=== PATIENT | male | born 1970 | race Caucasian/White ===

== ENCOUNTER 2020-11-03 08:24 | Emergency (ER) | payer MEDICARE, OTHER ==
[2020-11-03 08:30] VITALS: RESP 18; TEMP 98.1
--- NOTE | 2020-11-03 09:02 | ED ---
General Adult HPI - General Chief complaint: Extremity Injury, Lower Stated complaint: bilat knee pain Time Seen by Provider: 11/03/20 08:40 Source: patient, RN notes reviewed, old records reviewed Mode of arrival: ambulatory Limitations: no limitations - History of Present Illness Initial comments: 50-year-old male who presented with bilateral knee pain on the medial aspect of his knees. He has had the pain for several weeks. He denies a specific injury but states he had been doing some weed whacking and the pain did seem to begin after this. He went to an outside hospital and apparently had received both x- rays and ultrasounds of both legs which were negative for any acute abnormality and did indicate that the patient had some arthritis. He saw his primary care physician who recommended he use an arthritis cream but this has not been working. Additionally he takes prescription strength Motrin and Woodside for chronic back pain. These have not been helping much either. No fever. No trauma. No other complaints. - Related Data Home Medications Medication Instructions Recorded Confirmed HYDROcodone/APAP 10-325MG [Woodside 1 tab PO TID PRN 09/22/15 11/03/20 10-325] Allergies Allergy/AdvReac Type Severity Reaction Status Date / Time No Known Allergies Allergy Verified 11/03/20 09:31 Review of Systems ROS Statement: Those systems with pertinent positive or pertinent negative responses have been documented in the HPI. ROS Other: All systems not noted in ROS Statement are negative. Past Medical History Additional Past Medical History / Comment(s): back pain History of Any Multi-Drug Resistant Organisms: None Reported Additional Past Surgical History / Comment(s): right arm amputation, B knee Past Psychological History: No Psychological Hx Reported Smoking Status: Former smoker Past Alcohol Use History: None Reported Past Drug Use History: Marijuana General Exam Limitations: no limitations General appearance: alert, in no apparent distress Head exam: Present: atraumatic, normocephalic Eye exam: Present: normal appearance, PERRL ENT exam: Present: normal exam Neck exam: Present: normal inspection. Absent: tenderness Respiratory exam: Present: normal lung sounds bilaterally. Absent: respiratory distress Cardiovascular Exam: Present: regular rate, normal rhythm GI/Abdominal exam: Present: soft. Absent: distended, tenderness Extremities exam: Present: other (Traumatic right arm and dictation. Bilateral knee exam, normal range of motion, some minimal tenderness on the medial aspect of the knee, no effusion, no erythema.) Neurological exam: Present: alert, CN II-XII intact. Absent: motor sensory deficit Psychiatric exam: Present: normal affect, normal mood Skin exam: Present: warm, dry, intact Course Vital Signs 11/03/20 11/03/20 08:26 09:06 Temperature 98.1 F Pulse Rate 85 72 Respiratory 18 18 Rate Blood Pressure 181/126 149/113 O2 Sat by Pulse 96 96 Oximetry Medical Decision Making - Medical Decision Making 50-year-old male with bilateral knee pain and recent diagnosis of osteoarthritis. I do not see the need for repeat x-rays as patient has not had any specific trauma. There is no signs of infection to his knees. I recommend the patient sees orthopedics as he is artery on both Woodside and prescription strength Motrin. Is recommended that he follow with work fell and return parameters are discussed. Disposition Clinical Impression: Osteoarthritis, Bilateral knee pain Disposition: HOME SELF-CARE Condition: Good Instructions (If sedation given, give patient instructions): Knee Pain (ED) Is patient prescribed a controlled substance at d/c from ED?: No Referrals: Juan Mcdonald MD [Primary Care Provider] - 1-2 days Redd Calvo MD [STAFF PHYSICIAN] - 1-2 days Time of Disposition: 09:02
[2020-11-03 09:09] VITALS: BP 149/113; PULSE 72
== END 2020-11-03 09:37 | disposition home or self-care (01) ==
LOC: EC 08:24
DX: M17.0 Bilateral primary osteoarthritis of knee (principal); F12.90 Cannabis use, unspecified, uncomplicated; Z87.891 Personal history of nicotine dependence
CPT/HCPCS: 99283